=== PATIENT | female | born 1940 | race Asian ===

== ENCOUNTER → 2017-10-30 | Outpatient (CLI) | payer MEDICARE | LOC: ROC 08:21 | PROVIDERS: ATTEND Radiology Radiation Oncology | DX: Z08 Encounter for follow-up examination after completed treatment for malignant neoplasm (principal); D05.11 Intraductal carcinoma in situ of right breast | CPT/HCPCS: G0463 ==

== ENCOUNTER 2018-05-28 10:33 | Emergency (ER) | payer MEDICARE ==
[~2018-05-28] VITALS: Ht 149.9 cm; Wt 53.0 kg
[2018-05-28] MEDS ORDERED: GLUC1TAB21 PO (10:55)
[2018-05-28] MEDS ORDERED: CALCIUM (10:55)
--- NOTE | 2018-05-28 10:55 | NUR ---
OKAY BY JOSE GUADALUPE BROWN TO PROVIDE PT WITH SOME ICE CHIPS.
--- NOTE | 2018-05-28 11:04 | NUR ---
PT BEING TRANSPORTED TO RADIOLOGY VIA GURNEY.
--- NOTE | 2018-05-28 11:44 | NUR ---
PT RETURNED FROM XRAY. PER TECH REPORT PT HAD ONE EPISODE OF EMESIS. RN INFORMED PA.
--- NOTE | 2018-05-28 12:18 | NUR ---
RN REQUESTED MEDICATION WITH PHARMACY FOR PA. PT SLEEPING COMFORTABLY ON GURNEY.
[2018-05-28] MEDS ORDERED: BUPIVACAINE/PF 0.5% INFIL ONE (12:30)
--- NOTE | 2018-05-28 12:46 | NUR ---
PA AT BEDSIDE REDUCING RIGHT WRIST.
[2018-05-28 13:14] VITALS: BP 128/56
--- NOTE | 2018-05-28 13:15 | NUR ---
TECH JUST FINISHED APPLYING SPLIT TO RIGHT WRIST. PT RESTING COMFORTABLY. VSS. NO NEEDS AT THIS TIME. RN TO CONTINUE TO TYRON.
--- NOTE | 2018-05-28 14:35 | NUR ---
PT BEING DISCHARGED HOME IN A STABLE CONDITION. PIV WAS REMOVED WITH TIP INTACT. DC INSTRUCTIONS WERE DISCUSSED WITH PT. PT VERBALIZED UNDERSTANDING. NO FURTHER QUESTIONS OR CONCERNS WERE EXPRESSED AT THAT TIME. PT AMBULATED WITH RN TO DC DESK. STEADY GAIT.
== END 2018-05-28 14:37 | disposition home or self-care (01) ==
LOC: ED 10:49
DX: S52.571A Other intraarticular fracture of lower end of right radius, initial encounter for closed fracture (principal); W19.XXXA Unspecified fall, initial encounter; Y93.89 Activity, other specified; Y92.009 Unspecified place in unspecified non-institutional (private) residence as the place of occurrence of the external cause; Y99.8 Other external cause status
CPT/HCPCS: 25605; 72050; 73110; 73200; 99285; J3490

== ENCOUNTER → 2018-06-26 | Outpatient (CLI) | payer MEDICARE ==
[~2018-06-26] MED LIST: CALCIUM; GLUC1TAB21 PO
== END | disposition home or self-care (01) ==
LOC: RAD 11:36
PROVIDERS: ATTEND Orthopaedic Surgery
DX: S52.571B Other intraarticular fracture of lower end of right radius, initial encounter for open fracture type I or II (principal); M11.231 Other chondrocalcinosis, right wrist; X58.XXXA Exposure to other specified factors, initial encounter; Y93.89 Activity, other specified; Y92.89 Other specified places as the place of occurrence of the external cause; Y99.8 Other external cause status